=== PATIENT | female | born 1955 | race Two or more races ===

== ENCOUNTER → 2023-12-16 | Outpatient (CLI) | payer MEDICAID ==
[2023-12-16 13:59] LABS: Basophils # (auto) 0 10 ^3/uL (0-0.2); Basophils % (auto) 0.5 % (0.0-2.0); Eosinophils # (auto) 0.2 10 ^3/uL (0-0.8); Eosinophils % (auto) 2.3 % (0.0-7.0); Hematocrit 35.4 % (36.0-46.0); Hemoglobin 10.9 g/dL (12.2-16.2); Lymphocytes # (auto) 1.9 10 ^3/uL (0.4-5.4); Lymphocytes % (auto) 21.3 % (10.0-50.0); Mean Corpuscular Hemoglobin 26.5 pg (28.0-32.0); Mean Corpuscular Hgb Conc. 30.8 g/dL (32.0-36.0); Mean Corpuscular Volume 85.8 fL (80.0-100.0); Monocytes # (auto) 0.7 10 ^3/uL (0-1.3); Monocytes % (auto) 7.2 % (0.0-12.0); Neutrophils # (auto) 6.2 10 ^3/uL (1.6-8.6); Neutrophils % (auto) 68.7 % (37.0-80.0); Red Blood Cells 4.13 10^6/uL (4.0-5.20); White Blood Cell 9.1 10^3/uL (4.4-10.8)
[2023-12-16 14:42] LABS: Albumin 3.8 g/dL (3.2-4.8); Alkaline Phosphatase 80 U/L (46-116); Anion Gap 4 (5-15); Aspartate Aminotransferase 13 U/L (13-40); BUN/Creatinine Ratio 27.7 (10.0-20.0); Blood Urea Nitrogen 13 mg/dL (9-23); Carbon Dioxide 32 mmol/L (20-30); Chloride 101 mmol/L (98-107); Cholesterol 164 mg/dL (< 200); Glucose 74 mg/dL (74-106); HDL Cholesterol 56 mg/dL (40-59); LDL Cholesterol 94 mg/dL (< 100); Potassium 4.1 mmol/L (3.5-5.1); Sodium 137 mmol/L (136-145); Triglycerides 98 mg/dL (< 150)
[2023-12-16 14:43] LABS: Bilirubin, Total 0.3 mg/dL (0.2-1.0); Total Protein 6.6 g/dL (5.7-8.2)
[2023-12-16 14:44] LABS: Alanine Aminotransferase < 9 U/L (7-40)
[2023-12-16 14:47] LABS: Folate (Folic Acid) 6.56 ng/mL (>5.38)
[2023-12-16 14:54] LABS: Uric Acid 5.1 mg/dL (3.1-7.8)
[2023-12-16 14:56] LABS: Magnesium 1.3 mg/dL (1.6-2.6)
== END | disposition home or self-care (01) ==
LOC: LAB 13:34
PROVIDERS: ATTEND Internal Medicine
DX: E61.2 Magnesium deficiency (principal); E79.0 Hyperuricemia without signs of inflammatory arthritis and tophaceous disease; R94.6 Abnormal results of thyroid function studies; R82.998 Other abnormal findings in urine; D51.9 Vitamin B12 deficiency anemia, unspecified; E55.9 Vitamin D deficiency, unspecified; R82.79 Other abnormal findings on microbiological examination of urine; R78.89 Finding of other specified substances, not normally found in blood; E78.49 Other hyperlipidemia; R68.89 Other general symptoms and signs; R73.09 Other abnormal glucose
CPT/HCPCS: 36415; 80053; 80061; 82306; 82607; 82746; 83036; 83735; 84443; 84550; 85025

== ENCOUNTER 2024-01-20 15:15 | Inpatient (IN) | payer MEDICAID ==
[~2024-01-20] VITALS: Ht 172.7 cm; Wt 173.8 kg
[2024-01-20 16:18] LABS: Basophils # (auto) 0.1 10 ^3/uL (0-0.2); Basophils % (auto) 0.7 % (0.0-2.0); Eosinophils # (auto) 0.3 10 ^3/uL (0-0.8); Eosinophils % (auto) 2.6 % (0.0-7.0); Hematocrit 32.7 % (36.0-46.0); Hemoglobin 10.3 g/dL (12.2-16.2); Lymphocytes # (auto) 1.9 10 ^3/uL (0.4-5.4); Lymphocytes % (auto) 17.3 % (10.0-50.0); Mean Corpuscular Hgb Conc. 31.4 g/dL (32.0-36.0); Monocytes # (auto) 0.8 10 ^3/uL (0-1.3); Monocytes % (auto) 7.6 % (0.0-12.0); Neutrophils # (auto) 7.8 10 ^3/uL (1.6-8.6); Neutrophils % (auto) 71.8 % (37.0-80.0); Red Blood Cells 3.94 10^6/uL (4.0-5.20); Red Cell Distribution Width 15.7 % (11.8-14.3); White Blood Cell 10.9 10^3/uL (4.4-10.8)
[2024-01-20 16:28] LABS: Chloride 101 mmol/L (98-107); Potassium 3.8 mmol/L (3.5-5.1); Sodium 140 mmol/L (136-145)
[2024-01-20 16:29] LABS: Anion Gap 5 (5-15); Calcium 8.7 mg/dL (8.5-10.1); Carbon Dioxide 34 mmol/L (20-30)
[2024-01-20 16:34] LABS: Blood Urea Nitrogen 16 mg/dL (9-23); Glucose 70 mg/dL (74-106)
[2024-01-20 17:35] VITALS: PULSE 96; RESP 12; O2SAT 98
[2024-01-20] MEDS: PIPERACILLIN-TAZOB 3.375GM 100 ML IV ONE (17:55)
[2024-01-20 20:00] VITALS: PULSE 98; RESP 19; O2SAT 95
[2024-01-20] MEDS ORDERED: DEXTROSE (50%) 50ML SYRG IV PRN (21:30)
[2024-01-20] MEDS ORDERED: DOCUSATE SOD 100 MG CAP PO PRN (21:30)
[2024-01-20 21:41] VITALS: BP 173/82; PULSE 88; RESP 18; O2SAT 95
[2024-01-20 21:45] LABS: Urine Bacteria None Seen /hpf (None Seen)
[2024-01-20 21:57] LABS: Urine Blood Negative /uL (Negative); Urine Clarity Clear (Clear); Urine Color Colorless (Yellow); Urine Protein, UAD Negative (Negative); Urine Specific Gravity 1.015 (1.001-1.035); Urine Urobilinogen Normal (Negative); Urine WBC <1 /hpf (0 - 5); Urine pH 7.5 (5.0-9.0)
[2024-01-20] MEDS: InsuLIN REG 1unit/0.01ml Soln (100units/ml) SC SCH (22:00)
[2024-01-20] MEDS: SODIUM CHLOR 0.9% PF (SALINE LOCK) 10ML VIAL/SYR IV SCH (22:18)
[2024-01-20] MEDS: ACCU-CHEK COMFORT CURVE STRIP VI SCH (22:25)
[2024-01-20] MEDS: HYDROcodone-ACET 5/325MG TAB PO PRN (22:32)
[2024-01-20] MEDS: PIPERACILLIN-TAZOB 3.375GM 100 ML IV SCH (22:32)
[2024-01-20] MEDS: ASCORBIC ACID 500 MG TAB PO SCH (22:34)
[2024-01-20] MEDS: ONDANSETRON HCL 4 MG/2 ML VIAL IV PRN (23:51)
[2024-01-21] VITALS (10 sets, daily range): BP systolic 145–175; BP diastolic 56–95; PULSE 87–105; RESP 16–20; TEMP 97.6–99.2; O2SAT 91–98
[2024-01-21] MEDS ORDERED: NITROGLYCERIN 0.4 MG SL TAB SL PRN
[2024-01-21] MEDS: MORPHINE SULFATE INJ 2 MG/ml SYRG IV PRN ×2 (00:59→21:16)
[2024-01-21 05:32] LABS: Basophils # (auto) 0.1 10 ^3/uL (0-0.2); Eosinophils # (auto) 0.1 10 ^3/uL (0-0.8); Hemoglobin 10.5 g/dL (12.2-16.2); Lymphocytes # (auto) 1.6 10 ^3/uL (0.4-5.4); White Blood Cell 12.8 10^3/uL (4.4-10.8)
[2024-01-21 05:33] LABS: Basophils % (auto) 1.2 % (0.0-2.0); Eosinophils % (auto) 0.5 % (0.0-7.0); Hematocrit 33.7 % (36.0-46.0); Lymphocytes % (auto) 12.5 % (10.0-50.0); Mean Corpuscular Hgb Conc. 31.2 g/dL (32.0-36.0); Mean Corpuscular Volume 83.1 fL (80.0-100.0); Monocytes # (auto) 0.8 10 ^3/uL (0-1.3); Neutrophils # (auto) 10.2 10 ^3/uL (1.6-8.6); Neutrophils % (auto) 79.8 % (37.0-80.0); Red Blood Cells 4.05 10^6/uL (4.0-5.20); Red Cell Distribution Width 15.4 % (11.8-14.3)
[2024-01-21 05:41] LABS: Albumin 3.9 g/dL (3.2-4.8); Alkaline Phosphatase 91 U/L (46-116); Anion Gap 8 (5-15); Aspartate Aminotransferase 9 U/L (13-40); BUN/Creatinine Ratio 18.8 (10.0-20.0); Bilirubin, Total 0.4 mg/dL (0.2-1.0); Blood Urea Nitrogen 9 mg/dL (9-23); Calcium 9.5 mg/dL (8.7-10.4); Carbon Dioxide 32 mmol/L (20-30); Chloride 98 mmol/L (98-107); Glucose 110 mg/dL (74-106); Potassium 3.6 mmol/L (3.5-5.1); Sodium 138 mmol/L (136-145); Total Protein 6.6 g/dL (5.7-8.2)
[2024-01-21 05:43] LABS: Alanine Aminotransferase < 9 U/L (7-40)
[2024-01-21] MEDS ORDERED: VANCOMYCIN PER PHARMACY 0 MG IV SCH (06:15)
[2024-01-21] MEDS: VANCOMYCIN 1GM/200ML 200 ML IV ONE (06:45)
[2024-01-21] MEDS: hydrALAZINE HCL 20 MG/ML VL IV PRN (07:01)
[2024-01-21] MEDS ORDERED: PNEUMOCOCCAL VACC POLYS 25 MCG/0.5 ML VIAL IM ONE (08:15)
[2024-01-21] MEDS ORDERED: METF-370 PO (08:36)
[2024-01-21] MEDS ORDERED: LISI20TA56 PO (08:36)
[2024-01-21] MEDS ORDERED: OXYC-963 PO (08:36)
[2024-01-21] MEDS ORDERED: ALBUAER3 IN (08:36)
[2024-01-21] MEDS: ZINC SULFATE 220mg CAP or TAB PO SCH (09:08)
[2024-01-21] MEDS: MULTIPLE VITAMIN TAB PO SCH (09:09)
[2024-01-21] MEDS: levoFLOXacin 500MG 100 ML IV SCH (09:09)
[2024-01-21] MEDS: METOCLOPRAMIDE HCL 5MG/ml INJ 2ml VIAL IV PRN (11:07)
[2024-01-21] MEDS: VANCOMYCIN 1GM/200ML 200 ML IV SCH (15:00)
[2024-01-21] MEDS: ERGOCALCIFEROL 50,000 UNIT(1.25MG) CAP PO SCH (21:00)
[2024-01-21] MEDS: FAMOTIDINE 20 MG TAB PO SCH (21:17)
[2024-01-21] MEDS: SUCRALFATE 1 GM/10 ML ORAL SUSP GT SCH (21:17)
[2024-01-22] VITALS (9 sets, daily range): BP systolic 130–166; BP diastolic 75–93; PULSE 91–108; RESP 18–20; TEMP 97.8–99.9; O2SAT 94–98
[2024-01-22] MEDS: CYANOCOBALAMIN (B-12) 1000 MCG/1 ML VIAL IM SCH (09:23)
[2024-01-22] MEDS: ENOXAPARIN SOD 40 MG/0.4 ML SYRINGE SC SCH (10:07)
[2024-01-22] MEDS ORDERED: cloNIDine HCL 0.1 MG TAB PO PRN (11:15)
[2024-01-22] MEDS: ACETAMINOPHEN 325 MG TAB PO PRN (12:18)
[2024-01-22] MEDS: MAALOX PLUS or MAALOX 30 ML PO ONE (12:37)
[2024-01-22] MEDS: VANCOMYCIN 1GM/200ML 200 ML IV SCH (13:23)
[2024-01-22] MEDS: MELATONIN 5 MG TAB PO ONE (22:56)
[2024-01-23] VITALS (9 sets, daily range): BP systolic 141–168; BP diastolic 72–88; PULSE 91–101; RESP 16–20; TEMP 97.1–98.8; O2SAT 95–99
[2024-01-23 06:13] LABS: Basophils # (auto) 0.1 10 ^3/uL (0-0.2); Eosinophils # (auto) 0.1 10 ^3/uL (0-0.8); Lymphocytes # (auto) 1.7 10 ^3/uL (0.4-5.4); Nucleated Red Blood Cells % 0.1 %
[2024-01-23 06:15] LABS: Basophils % (auto) 0.5 % (0.0-2.0); Eosinophils % (auto) 0.4 % (0.0-7.0); Hematocrit 35.5 % (36.0-46.0); Hemoglobin 11.3 g/dL (12.2-16.2); Lymphocytes % (auto) 13.1 % (10.0-50.0); Mean Corpuscular Hemoglobin 26.1 pg (28.0-32.0); Mean Corpuscular Hgb Conc. 31.8 g/dL (32.0-36.0); Monocytes # (auto) 1.1 10 ^3/uL (0-1.3); Monocytes % (auto) 8.4 % (0.0-12.0); Neutrophils # (auto) 10.3 10 ^3/uL (1.6-8.6); Neutrophils % (auto) 77.6 % (37.0-80.0); Red Blood Cells 4.32 10^6/uL (4.0-5.20); Red Cell Distribution Width 15.5 % (11.8-14.3); White Blood Cell 13.3 10^3/uL (4.4-10.8)
[2024-01-23 06:22] LABS: Albumin 3.9 g/dL (3.2-4.8); Alkaline Phosphatase 86 U/L (46-116); Anion Gap 9 (5-15); Aspartate Aminotransferase < 8 U/L (13-40); Bilirubin, Total 0.4 mg/dL (0.2-1.0); Blood Urea Nitrogen 9 mg/dL (9-23); Calcium 9.3 mg/dL (8.7-10.4); Carbon Dioxide 32 mmol/L (20-30); Chloride 94 mmol/L (98-107); Glucose 111 mg/dL (74-106); Sodium 135 mmol/L (136-145)
[2024-01-23 06:23] LABS: Total Protein 6.6 g/dL (5.7-8.2)
[2024-01-23 06:46] LABS: Alanine Aminotransferase < 9 U/L (7-40)
[2024-01-23 06:48] LABS: Potassium 2.4 mmol/L (3.5-5.1)
[2024-01-23] MEDS: MAALOX PLUS or MAALOX 30 ML PO SCH (08:51)
[2024-01-23] MEDS: MAGNESIUM OXIDE 400 MG TAB PO ONE (09:27)
[2024-01-23] MEDS: POTASSIUM CHL 20 Meq TABLET PO ONE (09:27)
[2024-01-23] MEDS: MAGNESIUM SULFATE 1GM/100ML 100 ML IV SCH (10:56)
[2024-01-23] MEDS: POTASSIUM CHLORIDE 60 MEQ, LIDOCAINE 1% (LOCAL ANESTH.) 6 ML in SODIUM CHL 0.9% 500 ML IV ONE (19:44)
[2024-01-23] MEDS: SUCRALFATE 1 GM/10 ML ORAL SUSP PO SCH (21:16)
[2024-01-24] VITALS (10 sets, daily range): BP systolic 145–167; BP diastolic 81–106; PULSE 61–112; RESP 16–20; TEMP 97.4–98.8; O2SAT 96–99
[2024-01-24 06:13] LABS: Basophils # (auto) 0.1 10 ^3/uL (0-0.2); Eosinophils # (auto) 0 10 ^3/uL (0-0.8); Hemoglobin 11.2 g/dL (12.2-16.2); Lymphocytes # (auto) 2.1 10 ^3/uL (0.4-5.4)
[2024-01-24 06:14] LABS: Chloride 95 mmol/L (98-107); Potassium 3.1 mmol/L (3.5-5.1); Sodium 134 mmol/L (136-145)
[2024-01-24 06:15] LABS: Anion Gap 7 (5-15); Basophils % (auto) 0.7 % (0.0-2.0); Carbon Dioxide 32 mmol/L (20-30); Eosinophils % (auto) 0.2 % (0.0-7.0); Hematocrit 34.7 % (36.0-46.0); Lymphocytes % (auto) 16.1 % (10.0-50.0); Mean Corpuscular Hemoglobin 26.3 pg (28.0-32.0); Mean Corpuscular Hgb Conc. 32.4 g/dL (32.0-36.0); Mean Corpuscular Volume 81.4 fL (80.0-100.0); Monocytes # (auto) 1.4 10 ^3/uL (0-1.3); Monocytes % (auto) 10.7 % (0.0-12.0); Neutrophils # (auto) 9.3 10 ^3/uL (1.6-8.6); Neutrophils % (auto) 72.3 % (37.0-80.0); Nucleated Red Blood Cells % 0.1 %; Red Blood Cells 4.27 10^6/uL (4.0-5.20); Red Cell Distribution Width 15.8 % (11.8-14.3); White Blood Cell 12.8 10^3/uL (4.4-10.8)
[2024-01-24 06:20] LABS: Glucose 108 mg/dL (74-106)
[2024-01-24 06:21] LABS: BUN/Creatinine Ratio 21.4 (10.0-20.0); Blood Urea Nitrogen 9 mg/dL (9-23); Magnesium 1.5 mg/dL (1.6-2.6)
[2024-01-24] MEDS: ALBUTEROL SULF 2.5 MG/0.5ML(0.5%) NEB SOLN NEB PRN (09:42)
[2024-01-24] MEDS: MAGNESIUM OXIDE 400 MG TAB PO ONE (13:05)
[2024-01-24] MEDS: POTASSIUM CHL 20 Meq TABLET PO ONE (13:05)
[2024-01-24] MEDS: BISACODYL 5 MG EC TAB PO ONE (15:57)
[2024-01-24] MEDS: LACTULOSE 20Gm/30ML SOLN PO ONE (15:57)
[2024-01-24] MEDS: LISINOPRIL 20 MG TAB PO ONE (15:58)
[2024-01-24] MEDS: ENOXAPARIN SOD 40 MG/0.4 ML SYRINGE SC ONE (18:32)
[2024-01-24] MEDS: MAGNESIUM OXIDE 400 MG TAB PO SCH (20:59)
[2024-01-25] VITALS (13 sets, daily range): BP systolic 130–154; BP diastolic 73–89; PULSE 88–113; RESP 17–18; TEMP 97.5–98.6; O2SAT 96–98
[2024-01-25 06:26] LABS: Basophils # (auto) 0.1 10 ^3/uL (0-0.2); Eosinophils # (auto) 0.2 10 ^3/uL (0-0.8); Hematocrit 37.1 % (36.0-46.0); Lymphocytes # (auto) 2.3 10 ^3/uL (0.4-5.4); Monocytes # (auto) 1.2 10 ^3/uL (0-1.3)
[2024-01-25 06:31] LABS: Basophils % (auto) 0.9 % (0.0-2.0); Eosinophils % (auto) 1.1 % (0.0-7.0); Hemoglobin 11.7 g/dL (12.2-16.2); Lymphocytes % (auto) 16.7 % (10.0-50.0); Mean Corpuscular Hemoglobin 25.7 pg (28.0-32.0); Mean Corpuscular Hgb Conc. 31.4 g/dL (32.0-36.0); Mean Corpuscular Volume 81.7 fL (80.0-100.0); Monocytes % (auto) 8.3 % (0.0-12.0); Neutrophils # (auto) 10.1 10 ^3/uL (1.6-8.6); Red Blood Cells 4.54 10^6/uL (4.0-5.20); Red Cell Distribution Width 15.9 % (11.8-14.3); White Blood Cell 13.8 10^3/uL (4.4-10.8)
[2024-01-25 06:50] LABS: Chloride 96 mmol/L (98-107); Potassium 3.1 mmol/L (3.5-5.1); Sodium 133 mmol/L (136-145)
[2024-01-25 06:51] LABS: Anion Gap 6 (5-15); Carbon Dioxide 31 mmol/L (20-30)
[2024-01-25 06:52] LABS: Calcium 9.1 mg/dL (8.7-10.4)
[2024-01-25 06:56] LABS: BUN/Creatinine Ratio 16.2 (10.0-20.0); Blood Urea Nitrogen 6 mg/dL (9-23); Glucose 100 mg/dL (74-106)
[2024-01-25 06:57] LABS: Magnesium 1.4 mg/dL (1.6-2.6)
[2024-01-25] MEDS: CYANOCOBALAMIN (B-12) 1000 MCG/1 ML VIAL IM ONE (07:35)
[2024-01-25] MEDS ORDERED: ENOXAPARIN SOD 40 MG/0.4 ML SYRINGE SC SCH (10:00)
[2024-01-25] MEDS: LISINOPRIL 20 MG TAB PO SCH (10:19)
[2024-01-25] MEDS ORDERED: MULTTAB99 PO (15:17)
[2024-01-25] MEDS ORDERED: SPIR25TA PO (15:17)
[2024-01-25] MEDS ORDERED: FAMO-12 PO (15:17)
[2024-01-25] MEDS: POTASSIUM CHL 20 Meq TABLET PO ONE (16:49)
[2024-01-25] MEDS: VANCOMYCIN 1GM/200ML 200 ML IV SCH (16:49)
[2024-01-25] MEDS: MAGNESIUM OXIDE 400 MG TAB PO ONE (16:50)
[2024-01-25] MEDS: SPIRONOLACTONE 25 MG TAB PO ONE (16:50)
[2024-01-25] MEDS: MAGNESIUM OXIDE 400 MG TAB PO SCH (22:05)
[2024-01-26] VITALS (8 sets, daily range): BP systolic 112–133; BP diastolic 60–82; PULSE 80–100; RESP 17–18; TEMP 98–98.6; O2SAT 96–98
[2024-01-26 06:55] LABS: Chloride 97 mmol/L (98-107); Potassium 3.4 mmol/L (3.5-5.1); Sodium 132 mmol/L (136-145)
[2024-01-26 06:56] LABS: Anion Gap 3 (5-15); Calcium 8.8 mg/dL (8.7-10.4); Carbon Dioxide 32 mmol/L (20-30)
[2024-01-26 07:01] LABS: Glucose 84 mg/dL (74-106)
[2024-01-26 07:02] LABS: Magnesium 1.6 mg/dL (1.6-2.6)
[2024-01-26 07:06] LABS: BUN/Creatinine Ratio 13.9 (10.0-20.0); Blood Urea Nitrogen < 5 mg/dL (9-23)
[2024-01-26] MEDS: SPIRONOLACTONE 25 MG TAB PO SCH (09:09)
[2024-01-26] MEDS: POTASSIUM CHL 20 Meq TABLET PO ONE (09:09)
== END 2024-01-26 15:15 | disposition home health service (06) | DRG 391 ==
LOC: EDBD 15:15 → ER 15:15 → TELE 23:53 → TELE-WESTW 01-21 01:53 → WEST WING 01-23 02:31 → TELE-WESTW 01-23 09:09
PROVIDERS: ADMIT Internal Medicine; ATTEND Internal Medicine
DX: K52.9 Noninfective gastroenteritis and colitis, unspecified (principal); L89.153 Pressure ulcer of sacral region, stage 3; L89.313 Pressure ulcer of right buttock, stage 3; L89.213 Pressure ulcer of right hip, stage 3; J96.10 Chronic respiratory failure, unspecified whether with hypoxia or hypercapnia; Z68.43 Body mass index [BMI] 50.0-59.9, adult; E87.6 Hypokalemia; I10 Essential (primary) hypertension; E78.5 Hyperlipidemia, unspecified; E66.01 Morbid (severe) obesity due to excess calories; E53.8 Deficiency of other specified B group vitamins; E55.9 Vitamin D deficiency, unspecified; J44.9 Chronic obstructive pulmonary disease, unspecified; E11.9 Type 2 diabetes mellitus without complications; Z90.49 Acquired absence of other specified parts of digestive tract; Z88.0 Allergy status to penicillin; Z91.041 Radiographic dye allergy status; Z79.84 Long term (current) use of oral hypoglycemic drugs
CPT/HCPCS: 36415; 76705; 80048; 80053; 80202; 81001; 82565; 82962; 83605; 83735; 84132; 84484; 85025; 87040; 93005; 96365; 97110; 97116; 97163; 97530; G0378; J1815; J1956; J2001; J2405; J2543

== ENCOUNTER → 2024-04-26 | Outpatient (CLI) | payer MEDICAID ==
[~2024-04-26] MED LIST: ALBUAER3 IN; FAMO-12 PO; LISI20TA56 PO; METF-370 PO; MULTTAB99 PO; OXYC-963 PO; SPIR25TA PO
[2024-04-26 11:08] LABS: Basophils # (auto) 0 10 ^3/uL (0-0.2); Basophils % (auto) 0.4 % (0.0-2.0); Eosinophils # (auto) 0.2 10 ^3/uL (0-0.8); Eosinophils % (auto) 2.1 % (0.0-7.0); Hematocrit 33.6 % (36.0-46.0); Hemoglobin 10.7 g/dL (12.2-16.2); Lymphocytes # (auto) 1.3 10 ^3/uL (0.4-5.4); Lymphocytes % (auto) 13.4 % (10.0-50.0); Mean Corpuscular Hemoglobin 26.4 pg (28.0-32.0); Mean Corpuscular Hgb Conc. 31.7 g/dL (32.0-36.0); Monocytes # (auto) 0.6 10 ^3/uL (0-1.3); Monocytes % (auto) 5.9 % (0.0-12.0); Neutrophils # (auto) 7.7 10 ^3/uL (1.6-8.6); Neutrophils % (auto) 78.2 % (37.0-80.0); Red Blood Cells 4.04 10^6/uL (4.0-5.20); Red Cell Distribution Width 20.1 % (11.8-14.3); White Blood Cell 9.9 10^3/uL (4.4-10.8)
[2024-04-26 11:25] LABS: Urine Bacteria FEW /hpf (None Seen); Urine Blood TRACE /uL (Negative); Urine Clarity Turbid (Clear); Urine Color Yellow (Yellow); Urine Hyaline Cast FEW /lpf (0 - 2); Urine Protein, UAD TRACE (Negative); Urine Specific Gravity 1.026 (1.001-1.035); Urine Urobilinogen Normal (Negative); Urine WBC 12 /hpf (0 - 5)
[2024-04-26 11:33] LABS: Albumin 3.8 g/dL (3.2-4.8); Alkaline Phosphatase 74 U/L (46-116); Calcium 9.2 mg/dL (8.7-10.4); Carbon Dioxide 33 mmol/L (20-30); Chloride 100 mmol/L (98-107); Glucose 79 mg/dL (74-106); Triglycerides 81 mg/dL (< 150)
[2024-04-26 11:34] LABS: Alanine Aminotransferase < 9 U/L (7-40); Anion Gap 4 (5-15); Aspartate Aminotransferase < 8 U/L (13-40); BUN/Creatinine Ratio 23.6 (10.0-20.0); Bilirubin, Total 0.3 mg/dL (0.2-1.0); Blood Urea Nitrogen 17 mg/dL (9-23); Cholesterol 135 mg/dL (< 200); HDL Cholesterol 41 mg/dL (40-59); LDL Cholesterol 82 mg/dL (< 100); Magnesium 1.4 mg/dL (1.6-2.6); Potassium 4.3 mmol/L (3.5-5.1); Sodium 137 mmol/L (136-145); Total Protein 6.2 g/dL (5.7-8.2)
[2024-04-26 11:43] LABS: Creatinine, Urine 126.3 mg/dL (30.0-125.0)
[2024-04-26 11:47] LABS: Uric Acid 4.8 mg/dL (3.1-7.8)
[2024-04-27 14:52] LABS: Folate (Folic Acid) 3.34 ng/mL (>5.38)
== END | disposition home or self-care (01) ==
LOC: LAB 10:12
PROVIDERS: ATTEND Nurse Practitioner Family
DX: I10 Essential (primary) hypertension (principal); R53.1 Weakness; R79.89 Other specified abnormal findings of blood chemistry; K58.9 Irritable bowel syndrome, unspecified; F41.9 Anxiety disorder, unspecified; L89.302 Pressure ulcer of unspecified buttock, stage 2; E66.9 Obesity, unspecified; Z68.44 Body mass index [BMI] 60.0-69.9, adult
CPT/HCPCS: 36415; 80053; 80061; 81001; 82043; 82306; 82570; 82607; 82746; 83036; 83735; 84443; 84550; 85025; 87086

== ENCOUNTER 2024-05-09 21:55 | Inpatient (IN) | payer MEDICAID ==
[~2024-05-09] VITALS: Ht 172.7 cm; Wt 155.5 kg
[2024-05-10] VITALS (12 sets, daily range): BP systolic 102–151; BP diastolic 60–82; PULSE 54–114; RESP 17–20; TEMP 98.3–98.9; O2SAT 94–99
[2024-05-10] MEDS ORDERED: CYCL-839 PO (03:07)
[2024-05-10] MEDS ORDERED: HYDR25TA4 PO (03:07)
[2024-05-10] MEDS ORDERED: PAR20T GT (03:07)
[2024-05-10] MEDS ORDERED: LORA-1123 PO (03:07)
[2024-05-10] MEDS ORDERED: GABA400C PO (03:07)
[2024-05-10] MEDS ORDERED: ACETAMINOPHEN 325 MG TAB PO PRN (04:00)
[2024-05-10] MEDS ORDERED: DEXTROSE (50%) 50ML SYRG IV PRN (04:00)
[2024-05-10 06:03] LABS: Basophils # (auto) 0 10 ^3/uL (0-0.2); Basophils % (auto) 0.1 % (0.0-2.0); Eosinophils # (auto) 0 10 ^3/uL (0-0.8); Hematocrit 34.4 % (36.0-46.0); Hemoglobin 10.9 g/dL (12.2-16.2); Lymphocytes # (auto) 1.2 10 ^3/uL (0.4-5.4); Lymphocytes % (auto) 5.1 % (10.0-50.0); Mean Corpuscular Hgb Conc. 31.6 g/dL (32.0-36.0); Mean Corpuscular Volume 85.4 fL (80.0-100.0); Monocytes # (auto) 1.2 10 ^3/uL (0-1.3); Neutrophils # (auto) 21.4 10 ^3/uL (1.6-8.6); Neutrophils % (auto) 89.8 % (37.0-80.0); Platelet Count (auto) 273 10^3/uL (140-450); Red Blood Cells 4.03 10^6/uL (4.0-5.20); White Blood Cell 23.8 10^3/uL (4.4-10.8)
[2024-05-10 06:16] LABS: Red Cell Distribution Width 20.3 % (11.8-14.3)
[2024-05-10 06:22] LABS: Alanine Aminotransferase 20 U/L (7-40); Albumin 3.5 g/dL (3.2-4.8); Alkaline Phosphatase 97 U/L (46-116); Anion Gap 7 (5-15); Aspartate Aminotransferase 53 U/L (13-40); BUN/Creatinine Ratio 28.2 (10.0-20.0); Bilirubin, Total 0.6 mg/dL (0.2-1.0); Blood Urea Nitrogen 46 mg/dL (9-23); Calcium 8.5 mg/dL (8.7-10.4); Carbon Dioxide 25 mmol/L (20-30); Chloride 103 mmol/L (98-107); Glucose 123 mg/dL (74-106); Potassium 3.9 mmol/L (3.5-5.1); Sodium 135 mmol/L (136-145); Total Protein 5.8 g/dL (5.7-8.2)
[2024-05-10] MEDS: InsuLIN REG 1unit/0.01ml Soln (100units/ml) SC SCH (06:48)
[2024-05-10] MEDS: ACCU-CHEK COMFORT CURVE STRIP VI SCH (06:48)
[2024-05-10] MEDS ORDERED: NITROGLYCERIN 0.4 MG SL TAB SL PRN (07:00)
[2024-05-10] MEDS ORDERED: ALBUTEROL SULF 2.5 MG/0.5ML(0.5%) NEB SOLN NEB PRN (07:00)
[2024-05-10] MEDS ORDERED: MORPHINE SULFATE INJ 2 MG/ml SYRG IV PRN (07:00)
[2024-05-10] MEDS ORDERED: SODIUM CHLORIDE 0.9% 500 ML IV ONE (07:00)
[2024-05-10] MEDS: GABAPENTIN 400 MG CAP PO SCH (07:48)
[2024-05-10 08:13] LABS: Urine Bacteria None Seen /hpf (None Seen)
[2024-05-10 08:29] LABS: Urine Blood 1+ /uL (Negative); Urine Budding Yeast OCCASIONAL /hpf (None Seen); Urine Clarity Clear (Clear); Urine Color Yellow (Yellow); Urine Protein, UAD 1+ (Negative); Urine Specific Gravity 1.019 (1.001-1.035); Urine Urobilinogen Normal (Negative); Urine WBC 2 /hpf (0 - 5); Urine pH 5.5 (5.0-9.0)
[2024-05-10 08:35] LABS: Amphetamine Screen, Urine Neg (NEGATIVE)
[2024-05-10 08:36] LABS: Barbiturate Scree,Urine Neg (NEGATIVE); Benzodiazephine Screen, Urine Neg (NEGATIVE)
[2024-05-10 08:37] LABS: Cannabinoid Screen, Urine Neg (NEGATIVE); Cocaine Screen, Urine Neg (NEGATIVE); Opiate Scree,Urine Pos (NEGATIVE); Phencyclidine Screen, Urine Neg (NEGATIVE)
[2024-05-10] MEDS: LISINOPRIL 20 MG TAB PO SCH (10:00)
[2024-05-10] MEDS ORDERED: levoFLOXacin 250MG 50 ML IV SCH (10:00)
[2024-05-10] MEDS: hydroCHLOROthiazide 25 MG TAB PO SCH (10:00)
[2024-05-10] MEDS: SODIUM CHLORIDE 0.9% 1,000 ML IV ONE (10:55)
[2024-05-10] MEDS: levoFLOXacin 500MG 100 ML IV SCH (10:55)
[2024-05-10] MEDS: ENOXAPARIN SOD 40 MG/0.4 ML SYRINGE SC SCH (10:55)
[2024-05-10] MEDS: HYDROcodone-ACET 5/325MG TAB PO PRN (11:30)
[2024-05-10] MEDS: PIPERACILLIN-TAZOB 2.25GM 50 ML IV ONE (14:30)
[2024-05-10] MEDS ORDERED: VANCOMYCIN PER PHARMACY 0 MG IV SCH (14:30)
[2024-05-10] MEDS: VANCOMYCIN 1GM/200ML 200 ML IV SCH (15:46)
[2024-05-10 18:52] LABS: COVID19 ANTIGEN SOFIA FIA NEGATIVE (NEGATIVE); Rapid Influenza A Negative (Negative); Rapid Influenza B Negative (Negative)
[2024-05-10] MEDS: CEFEPIME 1GM/ 50ML 50 ML IV ONE (20:00)
[2024-05-10] MEDS: ATORVASTATIN 20 MG TAB PO SCH (21:44)
[2024-05-10] MEDS: CEFEPIME 1GM/ 50ML 50 ML IV SCH (21:44)
[2024-05-10] MEDS: ONDANSETRON HCL 4 MG/2 ML VIAL IV PRN (21:45)
[2024-05-10] MEDS ORDERED: PIPERACILLIN-TAZOB 2.25GM 50 ML IV SCH (22:00)
[2024-05-10] MEDS: NYSTATIN TOPICAL POWDER 15GM TOP SCH (22:00)
[2024-05-11] VITALS (10 sets, daily range): BP systolic 130–163; BP diastolic 60–108; PULSE 59–117; RESP 18–20; TEMP 97.7–98.7; O2SAT 95–99
[2024-05-11 07:30] LABS: Basophils # (auto) 0.3 10 ^3/uL (0-0.2); Basophils % (auto) 1.2 % (0.0-2.0); Eosinophils # (auto) 0 10 ^3/uL (0-0.8); Hematocrit 38.1 % (36.0-46.0); Hemoglobin 12.3 g/dL (12.2-16.2); Lymphocytes # (auto) 0.9 10 ^3/uL (0.4-5.4); Lymphocytes % (auto) 3.4 % (10.0-50.0); Mean Corpuscular Hemoglobin 27.6 pg (28.0-32.0); Mean Corpuscular Hgb Conc. 32.4 g/dL (32.0-36.0); Mean Corpuscular Volume 85.3 fL (80.0-100.0); Monocytes # (auto) 0.9 10 ^3/uL (0-1.3); Monocytes % (auto) 3.2 % (0.0-12.0); Neutrophils # (auto) 24.3 10 ^3/uL (1.6-8.6); Neutrophils % (auto) 92.2 % (37.0-80.0); Platelet Count (auto) 329 10^3/uL (140-450); Red Blood Cells 4.46 10^6/uL (4.0-5.20); Red Cell Distribution Width 19.9 % (11.8-14.3); White Blood Cell 26.4 10^3/uL (4.4-10.8)
[2024-05-11 07:36] LABS: Anion Gap 5 (5-15); Carbon Dioxide 28 mmol/L (20-30); Chloride 101 mmol/L (98-107); Potassium 3.8 mmol/L (3.5-5.1); Sodium 134 mmol/L (136-145)
[2024-05-11 07:38] LABS: Calcium 9.7 mg/dL (8.7-10.4)
[2024-05-11 07:42] LABS: BUN/Creatinine Ratio 30.8 (10.0-20.0); Glucose 148 mg/dL (74-106)
[2024-05-11 07:44] LABS: Blood Urea Nitrogen 33 mg/dL (9-23)
[2024-05-11] MEDS: ERGOCALCIFEROL 50,000 UNIT(1.25MG) CAP PO SCH (08:00)
[2024-05-11] MEDS: METOPROLOL SUCCINATE XL 50 MG TAB PO SCH (10:00)
[2024-05-11] MEDS: VANCOMYCIN 1GM/200ML 200 ML IV SCH (10:27)
[2024-05-11] MEDS: METOCLOPRAMIDE HCL 5MG/ml INJ 2ml VIAL IV PRN (13:56)
[2024-05-11] MEDS: PANTOPRAZOLE 40 MG/10 ML VIAL INJ IV ONE (13:56)
[2024-05-11] MEDS: MELATONIN 5 MG TAB PO ONE (22:07)
[2024-05-12] VITALS (9 sets, daily range): BP systolic 128–170; BP diastolic 64–102; PULSE 60–109; RESP 17–19; TEMP 97.8–98.3; O2SAT 94–98
[2024-05-12 05:47] LABS: Basophils # (auto) 0.1 10 ^3/uL (0-0.2); Basophils % (auto) 0.3 % (0.0-2.0); Eosinophils # (auto) 0 10 ^3/uL (0-0.8); Eosinophils % (auto) 0.1 % (0.0-7.0); Hematocrit 36.1 % (36.0-46.0); Hemoglobin 11.6 g/dL (12.2-16.2); Lymphocytes # (auto) 1.6 10 ^3/uL (0.4-5.4); Lymphocytes % (auto) 7.8 % (10.0-50.0); Mean Corpuscular Hemoglobin 27.2 pg (28.0-32.0); Mean Corpuscular Hgb Conc. 32.2 g/dL (32.0-36.0); Mean Corpuscular Volume 84.5 fL (80.0-100.0); Monocytes % (auto) 4.8 % (0.0-12.0); Neutrophils # (auto) 17.6 10 ^3/uL (1.6-8.6); Platelet Count (auto) 327 10^3/uL (140-450); Red Blood Cells 4.27 10^6/uL (4.0-5.20); Red Cell Distribution Width 19.3 % (11.8-14.3); White Blood Cell 20.3 10^3/uL (4.4-10.8)
[2024-05-12 05:56] LABS: Anion Gap 8 (5-15); Carbon Dioxide 27 mmol/L (20-30); Chloride 99 mmol/L (98-107); Potassium 3.2 mmol/L (3.5-5.1); Sodium 134 mmol/L (136-145)
[2024-05-12 05:57] LABS: Calcium 9.4 mg/dL (8.7-10.4)
[2024-05-12] MEDS ORDERED: PANTOPRAZOLE 40 MG TAB PO SCH (06:00)
[2024-05-12 06:02] LABS: BUN/Creatinine Ratio 33.7 (10.0-20.0); Blood Urea Nitrogen 31 mg/dL (9-23); Glucose 123 mg/dL (74-106)
[2024-05-12] MEDS: POTASSIUM CHL 20 Meq TABLET PO ONE (07:05)
[2024-05-12] MEDS: PANTOPRAZOLE 40 MG/10 ML VIAL INJ IV SCH (10:54)
[2024-05-12] MEDS: ERTAPENEM SOD INJ 1 GM in SODIUM CHL 0.9% 50 ML IV ONE (16:40)
[2024-05-12] MEDS: MELATONIN 5 MG TAB PO ONE (22:54)
[2024-05-13] VITALS (8 sets, daily range): BP systolic 122–179; BP diastolic 59–106; PULSE 62–110; RESP 16–21; TEMP 97.6–98.4; O2SAT 90–99
[2024-05-13 05:56] LABS: Basophils # (auto) 0.1 10 ^3/uL (0-0.2); Basophils % (auto) 0.3 % (0.0-2.0); Eosinophils # (auto) 0 10 ^3/uL (0-0.8); Eosinophils % (auto) 0.2 % (0.0-7.0); Hematocrit 37.9 % (36.0-46.0); Hemoglobin 12.3 g/dL (12.2-16.2); Lymphocytes # (auto) 1.9 10 ^3/uL (0.4-5.4); Lymphocytes % (auto) 10.9 % (10.0-50.0); Mean Corpuscular Hemoglobin 27.5 pg (28.0-32.0); Mean Corpuscular Hgb Conc. 32.5 g/dL (32.0-36.0); Mean Corpuscular Volume 84.7 fL (80.0-100.0); Monocytes # (auto) 1.2 10 ^3/uL (0-1.3); Monocytes % (auto) 6.7 % (0.0-12.0); Neutrophils # (auto) 14.2 10 ^3/uL (1.6-8.6); Neutrophils % (auto) 81.9 % (37.0-80.0); Platelet Count (auto) 344 10^3/uL (140-450); Red Blood Cells 4.48 10^6/uL (4.0-5.20); Red Cell Distribution Width 19.3 % (11.8-14.3); White Blood Cell 17.3 10^3/uL (4.4-10.8)
[2024-05-13 06:13] LABS: Chloride 98 mmol/L (98-107); Potassium 3.3 mmol/L (3.5-5.1); Sodium 134 mmol/L (136-145)
[2024-05-13 06:14] LABS: Anion Gap 4 (5-15); Calcium 9.5 mg/dL (8.7-10.4); Carbon Dioxide 32 mmol/L (20-30)
[2024-05-13 06:19] LABS: BUN/Creatinine Ratio 31.7 (10.0-20.0); Blood Urea Nitrogen 20 mg/dL (9-23); Glucose 96 mg/dL (74-106)
[2024-05-13] MEDS ORDERED: hydrALAZINE HCL 20 MG/ML VL IV PRN (06:30)
[2024-05-13] MEDS: ERTAPENEM SOD INJ 1 GM in SODIUM CHL 0.9% 50 ML IV SCH (09:17)
[2024-05-13] MEDS: SPIRONOLACTONE 25 MG TAB PO SCH (09:21)
[2024-05-13] MEDS: POTASSIUM CHL 20 Meq TABLET PO ONE (09:21)
[2024-05-13] MEDS: LOPERAMIDE HCL 2 MG CAP/TAB PO ONE (11:30)
[2024-05-14] VITALS (8 sets, daily range): BP systolic 122–163; BP diastolic 62–84; PULSE 81–99; RESP 17–20; TEMP 97.5–98.5; O2SAT 91–98
[2024-05-14 08:53] LABS: Basophils # (auto) 0 10 ^3/uL (0-0.2); Basophils % (auto) 0.2 % (0.0-2.0); Eosinophils # (auto) 0.1 10 ^3/uL (0-0.8); Eosinophils % (auto) 0.7 % (0.0-7.0); Hematocrit 38.9 % (36.0-46.0); Hemoglobin 12.4 g/dL (12.2-16.2); Lymphocytes # (auto) 2.1 10 ^3/uL (0.4-5.4); Lymphocytes % (auto) 14.3 % (10.0-50.0); Mean Corpuscular Hemoglobin 27.2 pg (28.0-32.0); Mean Corpuscular Hgb Conc. 31.8 g/dL (32.0-36.0); Mean Corpuscular Volume 85.7 fL (80.0-100.0); Monocytes # (auto) 1.5 10 ^3/uL (0-1.3); Neutrophils # (auto) 11.2 10 ^3/uL (1.6-8.6); Neutrophils % (auto) 74.8 % (37.0-80.0); Platelet Count (auto) 289 10^3/uL (140-450); Red Blood Cells 4.54 10^6/uL (4.0-5.20); Red Cell Distribution Width 18.7 % (11.8-14.3); White Blood Cell 14.9 10^3/uL (4.4-10.8)
[2024-05-14 08:55] LABS: Chloride 96 mmol/L (98-107); Potassium 4.1 mmol/L (3.5-5.1); Sodium 132 mmol/L (136-145)
[2024-05-14 08:56] LABS: Anion Gap 0 (5-15); Carbon Dioxide 36 mmol/L (20-30)
[2024-05-14 08:57] LABS: Calcium 9.3 mg/dL (8.7-10.4)
[2024-05-14 09:01] LABS: Glucose 81 mg/dL (74-106)
[2024-05-14] MEDS: FLORASTOR (S. BOULARDII) 250 MG CAP PO SCH (09:01)
[2024-05-14 09:02] LABS: BUN/Creatinine Ratio 21.2 (10.0-20.0); Blood Urea Nitrogen 11 mg/dL (9-23)
[2024-05-15] VITALS (7 sets, daily range): BP systolic 110–143; BP diastolic 59–74; PULSE 80–90; RESP 16–20; TEMP 97.6–98.6; O2SAT 90–96
[2024-05-15 07:20] LABS: Hematocrit 38.6 % (36.0-46.0); Hemoglobin 12.4 g/dL (12.2-16.2); Mean Corpuscular Hemoglobin 27.2 pg (28.0-32.0); Mean Corpuscular Hgb Conc. 32.1 g/dL (32.0-36.0); Mean Corpuscular Volume 84.7 fL (80.0-100.0); Platelet Count (auto) 278 10^3/uL (140-450); Red Blood Cells 4.55 10^6/uL (4.0-5.20); Red Cell Distribution Width 18.8 % (11.8-14.3); White Blood Cell 12.4 10^3/uL (4.4-10.8)
[2024-05-15 07:23] LABS: Band Neutrophils % (manual) 0; Basophils % (manual) 0 (0.0-2.0); Blast Cells 0; Metamyelocytes % 0; Myelocytes % 0; Promyelocytes % 0; Reactive Lymphocytes 0
[2024-05-15 07:31] LABS: Anion Gap 1 (5-15); Calcium 8.6 mg/dL (8.7-10.4); Carbon Dioxide 37 mmol/L (20-30); Chloride 95 mmol/L (98-107); Potassium 3.1 mmol/L (3.5-5.1); Sodium 133 mmol/L (136-145)
[2024-05-15 07:37] LABS: Blood Urea Nitrogen 9 mg/dL (9-23); Glucose 80 mg/dL (74-106); Magnesium 1.1 mg/dL (1.6-2.6)
[2024-05-15 08:36] LABS: Eosinophils % (manual) 1 (0-7); Lymphocytes % (manual) 32 (10.0-50.0); Monocytes % (manual) 10 (0-12); Platelet Estimate Adequa
[2024-05-15] MEDS: MAGNESIUM OXIDE 400 MG TAB PO ONE (12:37)
[2024-05-15] MEDS: MAGNESIUM SULFATE 1GM/100ML 100 ML IV SCH (12:37)
[2024-05-15] MEDS: POTASSIUM CHL 20 Meq TABLET PO ONE (12:37)
[2024-05-15] MEDS: MAGNESIUM OXIDE 400 MG TAB PO SCH (22:51)
[2024-05-15] MEDS: LOPERAMIDE HCL 2 MG CAP/TAB PO PRN (22:54)
[2024-05-15] MEDS: CHOLESTYRAMINE 4 GM POWDER PO SCH (22:59)
[2024-05-16] VITALS (7 sets, daily range): BP systolic 112–130; BP diastolic 60–75; PULSE 81–93; RESP 17–20; TEMP 97.4–98.8; O2SAT 96–99
[2024-05-16 06:02] LABS: Basophils # (auto) 0 10 ^3/uL (0-0.2); Basophils % (auto) 0.3 % (0.0-2.0); Eosinophils # (auto) 0.2 10 ^3/uL (0-0.8); Eosinophils % (auto) 1.5 % (0.0-7.0); Hematocrit 36.4 % (36.0-46.0); Hemoglobin 11.8 g/dL (12.2-16.2); Lymphocytes # (auto) 2.7 10 ^3/uL (0.4-5.4); Lymphocytes % (auto) 22.2 % (10.0-50.0); Mean Corpuscular Hemoglobin 27.5 pg (28.0-32.0); Mean Corpuscular Hgb Conc. 32.4 g/dL (32.0-36.0); Mean Corpuscular Volume 84.8 fL (80.0-100.0); Monocytes # (auto) 1.6 10 ^3/uL (0-1.3); Monocytes % (auto) 13.4 % (0.0-12.0); Neutrophils # (auto) 7.7 10 ^3/uL (1.6-8.6); Neutrophils % (auto) 62.6 % (37.0-80.0); Nucleated Red Blood Cells % 0.1 %; Platelet Count (auto) 294 10^3/uL (140-450); Red Blood Cells 4.29 10^6/uL (4.0-5.20); Red Cell Distribution Width 18.7 % (11.8-14.3); White Blood Cell 12.3 10^3/uL (4.4-10.8)
[2024-05-16 06:23] LABS: Calcium 8.4 mg/dL (8.7-10.4); Chloride 95 mmol/L (98-107); Potassium 3.7 mmol/L (3.5-5.1); Sodium 133 mmol/L (136-145)
[2024-05-16 06:24] LABS: Anion Gap 4 (5-15); Carbon Dioxide 34 mmol/L (20-30)
[2024-05-16 06:29] LABS: BUN/Creatinine Ratio 20.9 (10.0-20.0); Blood Urea Nitrogen 9 mg/dL (9-23); Glucose 86 mg/dL (74-106)
== END 2024-05-16 20:48 | DRG 871 ==
LOC: TELE-CENTR 05-10 02:00 → CENTRAL 05-11 05:47
PROVIDERS: ADMIT Internal Medicine; ATTEND Internal Medicine
PROC: 05HF33Z Insertion of Infusion Device into Left Cephalic Vein, Percutaneous Approach (ICD-10-PCS; principal; 2024-05-13)
PROC: B54NZZA Ultrasonography of Left Upper Extremity Veins, Guidance (ICD-10-PCS; 2024-05-13)
DX: A41.9 Sepsis, unspecified organism (principal); N17.0 Acute kidney failure with tubular necrosis; A09 Infectious gastroenteritis and colitis, unspecified; N39.0 Urinary tract infection, site not specified; Z68.43 Body mass index [BMI] 50.0-59.9, adult; I50.32 Chronic diastolic (congestive) heart failure; J44.9 Chronic obstructive pulmonary disease, unspecified; E66.01 Morbid (severe) obesity due to excess calories; S31.819A Unspecified open wound of right buttock, initial encounter; I11.0 Hypertensive heart disease with heart failure; L89.312 Pressure ulcer of right buttock, stage 2; L89.892 Pressure ulcer of other site, stage 2; E11.9 Type 2 diabetes mellitus without complications; B96.20 Unspecified Escherichia coli [E. coli] as the cause of diseases classified elsewhere; Z90.49 Acquired absence of other specified parts of digestive tract; Z82.49 Family history of ischemic heart disease and other diseases of the circulatory system; Z83.6 Family history of other diseases of the respiratory system; Z87.891 Personal history of nicotine dependence; Z99.81 Dependence on supplemental oxygen; X58.XXXA Exposure to other specified factors, initial encounter; Y93.89 Activity, other specified; Y92.89 Other specified places as the place of occurrence of the external cause; Y99.8 Other external cause status
CPT/HCPCS: 36415; 71045; 80048; 80053; 80202; 80307; 81001; 82962; 83605; 83735; 84484; 85007; 85025; 85027; 85048; 87040; 87045; 87077; 87086; 87088; 87186; 87205; 87426; 87427; 87804; 93306; 97110; 97530; G0378; J1335; J1815; J1956; J2405; J2470; J2543